=== PATIENT | female | born 1960 | race Caucasian/White ===

== ENCOUNTER 2023-07-14 08:22 | Emergency (ER) | payer OTHER, SELFPAY ==
--- NOTE | ~2023-07-14 | XR_ITS ---
EXAMINATION: XR chest 2V DATE: 07/14/2023 08:47 INDICATION: Cough and congestion TECHNIQUE: PA and lateral views of the chest are obtained. COMPARISON: 04/20/2010 FINDINGS: The lungs are free of acute opacities. No pleural effusion or pneumothorax. The cardiomedia stinal silhouette is normal. There is moderate thoracic spondylosis. Thoracic dextroscoliosis is note d. IMPRESSION: 1. No acute cardiopulmonary abnormality. Reviewed, dictated and finalized at location [employer]
--- NOTE | 2023-07-14 08:27 | ED.URI ---
HPI - URI/Sore Throat General Chief Complaint: Upper Respiratory Infection Stated Complaint: Cough,Congestion,Bilateral Ear Irritation Time Seen by Provider: 07/14/23 08:27 Source: patient, RN notes reviewed and old records reviewed Mode of arrival: ambulatory Limitations: no limitations History of Present Illness HPI Narrative: 63-year-old female presents to the [facility] with complaints of cough, sinus congestion, bilateral ear discomfort. Symptoms started 7 days ago. Related Data Home Medications Medication Instructions Recorded Confirmed doxycycline hyclate 20 mg tablet 20 mg PO BID 07/14/23 07/14/23 Allergies Allergy/AdvReac Type Severity Reaction Status Date / Time Sulfa (Sulfonamide AdvReac Mild Hives Verified 07/14/23 08:24 Antibiotics) Review of Systems Review of Systems: All systems reviewed & are unremarkable except as noted in HPI and below Constitutional: Constitutional: Reports no additional constitutional complaints Eyes: Eyes: Reports no additional eye complaints ENT: Reports as per HPI and Reports otalgia Cardiovascular: Cardiovascular: Reports no additional cardiovascular complaints, Denies chest pain and Denies dyspnea Respiratory: Respiratory: Reports as per HPI, Denies chest congestion, Reports cough, Denies dyspnea and Reports wheezing Gastrointestinal: Gastrointestinal: Reports no additional gastrointestinal complaints, Denies abdominal pain, Denies nausea and Denies vomiting Musculoskeletal: Musculoskeletal: Reports no additional musculoskeletal complaints Integumentary/Breasts: Skin/Breast: Reports system reviewed and no additional complaints, except as docu Neurologic: Reports system reviewed and no additional complaints, except as documented Psychiatric: Psychiatric: Reports no additional psychiatric complaints Allergic/Immunologic: Allergic/Immunologic: Reports no additional allergic/immunologic complaints [facility] Family History Family History Mother Asthma Patient's mother is Father Patient's father is in good health Family history of diabetes mellitus in first degree relative Sibling Patient's brother is in good health Malignant neoplasm of prostate Patient's sister is Social History Social History Alcohol intake: never Comments At the time of my signature, I reviewed and agree with the nursing past medical, surgical, social, and family history. There is no relevant family history pertinent to the patient complaint. Exam Const: General: cooperative, healthy appearing, no acute distress, well developed, alert, uncomfortable and well nourished Nutritional Appearance: well nourished Orientation/consciousness: patient oriented x3 Limitations: no limitations HENMT: Head: normal to inspection Ears: hearing grossly normal bilaterally, external ears normal, TM's normal bilaterally, EAC's normal, mastoids normal and no periauricular adenopathy Face/Nose/Sinus: Normal external nose present, Normal nares present, Normal nasal mucous membranes and turbinates present, normal facial exam and face symmetric Face and sinus: normal facial exam and face symmetric Mouth: Yes Normal oral and palatal mucosa present, Yes lip normal and Yes moist mucous membranes Throat: posterior oropharynx normal, uvula midline and postnasal drainage Eyes: General: appearance normal, both eyes and all related structures Alignment and Position: alignment normal Periorbital: periorbital findings normal Pupils: Equal, round and reactive pupils present EOM: EOMs intact bilaterally Neck: Neck: normal visual inspection, full ROM, no lymphadenopathy and no meningeal signs Chest: Chest palpation & inspection: normal inspection of the chest Resp: Effort & Inspection: normal respiratory effort and able to speak in complete sentences Auscultation: c
[2023-07-14 08:38] VITALS: BP 151/77; PULSE 67; RESP 18; TEMP 36.4; O2SAT 100
== END 2023-07-14 09:50 | disposition home or self-care (01) ==
PROVIDERS: Emergency Provider Nurse Practitioner
DX: J40 Bronchitis, not specified as acute or chronic (principal); J32.9 Chronic sinusitis, unspecified; Z86.16 Personal history of COVID-19; M19.90 Unspecified osteoarthritis, unspecified site
CPT/HCPCS: 71046; 99213; G0463

== ENCOUNTER 2023-12-28 18:11 | Emergency (ER) | payer OTHER, SELFPAY ==
--- NOTE | 2023-12-28 18:14 | ED.EYEPROB ---
HPI - Eye Problem General Chief complaint: Eye Problems Stated complaint: pink eye/stung Time Seen by Provider: 12/28/23 18:14 Source: patient Mode of arrival: ambulatory Limitations: no limitations History of Present Illness HPI Narrative: Marisa is a 63-year-old female patient presenting to the clinic today with complaints of possible insect bite/sting to the right eyelid verses pinkeye. She reports she has had watery discharge coming from the eye and the eyelid is very itchy. States she woke up this morning like this. Denies any purulent discharge coming from the eye or any visual changes but states that she has allergies and did mow the lawn 3-4 days ago. Related Data Home Medications Medication Instructions Recorded Confirmed doxycycline hyclate 20 mg tablet 20 mg PO BID 07/14/23 12/28/23 diclofenac sodium 75 mg 75 mg PO DAILY 12/28/23 12/28/23 tablet,delayed release Allergies Allergy/AdvReac Type Severity Reaction Status Date / Time Sulfa (Sulfonamide AdvReac Mild Hives Verified 12/28/23 18:22 Antibiotics) Review of Systems Review of Systems: Pertinent positives per HPI. Patient denies any fever, chills, rash, headache, visual changes, dizziness, cough, runny nose, sore throat, shortness of breath, chest pain, palpitations, nausea, vomiting, diarrhea, constipation, abdominal pain, or any urinary issues. PMFSH Family History Family History Mother Asthma Patient's mother is Father Patient's father is in good health Family history of diabetes mellitus in first degree relative Sibling Patient's brother is in good health Malignant neoplasm of prostate Patient's sister is Social History Social History Alcohol intake: never Comments At the time of my signature, I reviewed and agree with the nursing past medical, surgical, social, and family history. There is no relevant family history pertinent to the patient complaint. Exam Narrative: General: Well-developed, well nourished, in no apparent distress Head: Normocephalic, atraumatic Eyes: Pupils equally round and reactive to light bilaterally, EOM intact, sclera and conjunctive clear, no discharge, swelling localized to the right upper eyelid with likely due to insect bite Ears: TMs intact and clear, ear canals clear, no drainage, grossly hearing normal. Nose: Nares patent, no discharge, no inflammation, no sinus tenderness. Mouth: Oropharynx without lesions or masses, good dentition, MMM. Neck: Supple, trachea midline, no enlargement of anterior or posterior cervical nodes, no thyroid masses or goiter palpable. Cardio: Regular rate and rhythm, s1 and s2 normal, no murmur appreciated. Resp: Clear to auscultation bilaterally anteriorly and posteriorly, no rhonchi, rales, wheezing or rubs Course Course Emergency Course: Portions of this record may have been created with voice recognition software. Level of Care: Express Care Visit Vital Signs Vital signs: Vital signs reviewed MDM - Eye Problem MDM Narrative Medical decision making narrative: At the time of visit patient is resting comfortably on the exam table. Patient appears to be nontoxic. Plan: I suspect patient has a insect bite with it general allergic reaction to the right upper eyelid. Prescription for triamcinolone cream and azelastine eyedrops was sent to the pharmacy. Supportive measures were discussed with the patient and they voiced understanding discharge instructions and agrees to treatment plan. Return precautions reviewed Differential Diagnosis Differential diagnosis: Likely corneal abrasion, conjunctivitis, acute iritis, periorbital cellulitis and other (Insect bite) Discharge Plan Discharge Clinical Impression: Insect bite Qualifiers: Encounter type: initial encounter Site of insect bite: h
[2023-12-28 18:22] VITALS: BP 123/65; PULSE 72; RESP 18; TEMP 36.4; O2SAT 99
[2023-12-28 18:24] VITALS: BP 123/65; PULSE 72; RESP 18; TEMP 36.4; O2SAT 99
== END 2023-12-28 18:30 | disposition home or self-care (01) ==
PROVIDERS: Emergency Provider Nurse Practitioner Family; PCP Registered Nurse
DX: S00.261A Insect bite (nonvenomous) of right eyelid and periocular area, initial encounter (principal); W57.XXXA Bitten or stung by nonvenomous insect and other nonvenomous arthropods, initial encounter; T78.40XA Allergy, unspecified, initial encounter
CPT/HCPCS: 99213; G0463

== ENCOUNTER 2024-12-24 15:51 | Emergency (ER) | payer OTHER, SELFPAY ==
--- NOTE | 2024-12-24 15:53 | ED.SKABFB ---
HPI - Skin/Abscess/Foreign Bdy General Chief complaint: Skin/Abscess/Foreign Body Stated complaint: rash Time Seen by Provider: 12/24/24 15:53 Source: patient Mode of arrival: ambulatory Limitations: no limitations History of Present Illness HPI narrative: Patient is a 64-year-old female who presents with redness, swelling, itching in warmth to left upper extremity. States she has woken herself up itching and middle the night. Does report itching makes it painful. Denies any burning sensation or blisters. Has used cortisone cream and antibiotic ointment with no relief. Related Data Home Medications ?Medication ?Instructions ?Recorded ?Confirmed ?Last Taken ?Type doxycycline hyclate 20 mg tablet 20 mg PO BID 07/14/23 12/28/23 Unknown History diclofenac sodium 75 mg 75 mg PO DAILY 12/28/23 12/28/23 Unknown History tablet,delayed release Allergies Allergy/AdvReac Type Severity Reaction Status Date / Time Sulfa (Sulfonamide Allergy Mild Hives Verified 12/24/24 16:03 Antibiotics) Review of Systems Review of Systems: All systems reviewed & are unremarkable except as noted in HPI and below Constitutional: Constitutional: Denies body ache(s), Denies chills, Denies fatigue, Denies fever(s), Denies headache(s), Denies malaise and Denies weakness Eyes: Eyes: Denies blurry vision, Denies irritation and Denies loss of vision ENT: Denies otalgia, Denies headache(s), Denies nasal discharge, Denies sinus pain and Denies sore throat Cardiovascular: Cardiovascular: Denies chest pain, Denies irregular heart rhythm and Denies dyspnea Respiratory: Respiratory: Denies dyspnea Gastrointestinal: Gastrointestinal: Denies abdominal pain, Denies melena, Denies hematochezia, Denies diarrhea, Denies nausea and Denies vomiting Musculoskeletal: Musculoskeletal: Denies back pain, Denies myalgias and Denies arthralgias Integumentary/Breasts: Skin/Breast: Reports pruritus, Reports erythema, Reports rash and Reports skin swelling Neurologic: Denies headache(s), Denies loss of vision and Denies weakness Psychiatric: Psychiatric: Reports no additional psychiatric complaints Endocrine: Endocrine: Denies fatigue [facility] Family History Family History Mother Asthma Patient's mother is Father Patient's father is in good health Family history of diabetes mellitus in first degree relative Sibling Patient's brother is in good health Malignant neoplasm of prostate Patient's sister is Social History Social History Alcohol intake: never Comments At time of signature, agree with nursing past medical, surgical, social and family history. There is no relevant family history pertinent to the presenting complaint. Exam Const: General: cooperative, healthy appearing, comfortable, no acute distress and well nourished Nutritional Appearance: well nourished Orientation/consciousness: patient oriented x3 Limitations: no limitations HENMT: Head: normal to inspection, normocephalic and atraumatic Ears: hearing grossly normal bilaterally and external ears normal Face/Nose/Sinus: Normal external nose present, normal facial exam and face symmetric Face and sinus: normal facial exam and face symmetric Mouth: Yes lip normal Eyes: General: appearance normal, both eyes and all related structures Alignment and Position: alignment normal and position normal Periorbital: periorbital findings normal Eyelids: eyelids normal Pupils: Equal, round and reactive pupils present EOM: EOMs intact bilaterally Neck: Neck: normal visual inspection, full ROM and supple Chest: Chest palpation & inspection: normal inspection of the chest Resp: Effort & Inspection: normal respiratory effort and able to speak in complete sentences Auscultation: clear to auscultation bilaterally Cardio: Rate: regular rate Rhythm: regular rhythm Heart sounds: S1 normal heart sound present and S2 normal heart sound present GI: Inspection: normal to inspection Skin: General skin exam: normal color Full body images:  1. 1 x 1 cm area of erythema, induration and small vesicles. Center 0.5 x 0.5 scab 2. 1 x 1 cm area of erythema, induration and small vesicles. Center 0.5 x 0.5 scab 3. Surrounding erythema 8 x 7.5 cm, no streaking Neuro: General: patient oriented x3 and moves all extremities Cranial nerves: Yes Equal, round and reactive pupils present Speech: normal speech Gait exam (Neuro): Normal gait present Extrem: General: normal to inspection, full ROM and no edema Psych: Appearance: grossly normal and well kempt Mental Status: mental status grossly normal Speech and movement: Normal speech and movement present Affect: normal affect Attitude: cooperative Thought process: Normal thought process present Course Course Emergency Course: Patient is aware of diagnosis, understands and agrees to treatment plan. Anticipatory guidance given. Patient agrees to follow-up as directed and is aware of reasons to seek care at the emergency department. Portions of this record may have been created with voice recognition software Level of Care: Express Care Visit Vital Signs Vital signs: Reviewed MDM - Skin/Abscess/Foreign Bdy MDM Narrative Medical decision making narrative: Pt well hydrated appearing, in no respiratory distress, hemodynamically stable. Recommend supportive care. The patient is stable at time of discharge the clinical impression was discussed and the patient was given the opportunity to ask questions, which were addressed as completely as possible given the information available at present. Anticipatory guidance and return to care precautions were discussed and the importance of primary care follow-up was stressed and encouraged. The patient voiced understanding of the plan, indications to return, and the need for follow-up. Exam findings show no acute concerns or changes Patient is appropriate for outpatient treatment and follow-up. Differential Diagnosis Differential diagnosis: Likely viral exanthem, urticaria, herpes zoster, cellulitis, insect bites and contact dermatitis Medical Records Attestation: I reviewed the patient's medical records. Discharge Plan Discharge Clinical Impression: Cellulitis, Insect bites Patient Disposition: Home Condition: Stable Instructions: Cellulitis (ED) Additional Instructions: Rest and elevate affected area; apply moist heat 3-4 times daily for 10-15 minutes. Clean with soap and water only; Avoid using alcohol and peroxide. Elevate the affected area if possible Please take Antibiotics as directed. Take Benadryl 25-50 mg every 6 hours for itching Take Claritin, Zyrtec, or Amber daily for the next 7 days Avoid hot showers, Take cool showers. Use skin cream as prescribed to reduce itchiness To relieve itching, place a cool washcloth or some ice over the area that itches, rather than scratching For pain, you may take: Tylenol 650-1000mg by mouth every 4-6 hours. Do not exceed 4000mg in 24 hours. Advil (Ibuprofen) 600 mg by mouth every 6 hours. Do not exceed 2400mg in 24 hours. 8 AM: Tylenol 11 AM: Ibuprofen 2 PM: Tylenol 5 PM: Ibuprofen 8 PM: Tylenol 11 PM: Ibuprofen 2 AM: Tylenol 5 AM: Ibuprofen Follow up with primary care provider or seek ER if you have trouble breathing, become hoarse, or start wheezing, develop belly cramps, vomiting, feel dizzy, worsening redness, swelling, streaking (red lines), fever or chills . Patient Language: Afghan Prescriptions: New triamcinolone acetonide 0.1 % cream 1 applic topical TID 5 Days Qty: 80 0RF cephalexin 500 mg capsule 500 mg PO QID 7 Days Qty: 28 0RF mupirocin 2 % ointment 1 applic topical BID Qty: 15 0RF No Action doxycycline hyclate 20 mg tablet 20 mg PO BID diclofenac sodium 75 mg tablet,delayed release (DR/EC) 75 mg PO DAILY triamcinolone acetonide 0.1 % cream 1 applic topical BID 7 Days Qty: 30 0RF azelastine 0.05 % drops 1 drp RIGHT EYE BID 7 Days Qty: 6 0RF Follow-up/Referrals: Mohan,Renetta Sebastian APRN [Primary Care Provider] - 3 Days Stand Alone Forms: Work/School Release IP Time of Disposition: 16:14
[2024-12-24 16:00] VITALS: BP 140/71; PULSE 71; RESP 18; TEMP 36.2; O2SAT 98
== END 2024-12-24 16:20 | disposition home or self-care (01) ==
PROVIDERS: Emergency Provider Nurse Practitioner Family; PCP Registered Nurse
DX: L03.114 Cellulitis of left upper limb (principal); S40.862A Insect bite (nonvenomous) of left upper arm, initial encounter; W57.XXXA Bitten or stung by nonvenomous insect and other nonvenomous arthropods, initial encounter
CPT/HCPCS: 99213; G0463

== ENCOUNTER 2025-03-02 17:29 | Emergency (ER) | payer OTHER, SELFPAY ==
--- OUTSIDE RECORDS SUMMARY | 2023-08-12 06:22 | XMS_ITS | Continuity of Care Document ---
Author Organization [facility] Address [address] [place] [address] Phone Care Team Providers Care Graining Operator Name Role Phone Jonathan Paredes Jr, MD Unavailable Unavailab le Allergies, Adverse Reactions, Alerts Substance Reaction Status Criticality Sulfa (Sulfonamide Antibiotics) Active No Information Medications Medication Instructions Dosage Effective Dates (start - stop) Status Comments PREDNISONE (unknown strength) take 1 tablet by oral route every day Not Available - Active DOXYCYCLINE MONOHYDRATE (unknown strength) take 1 capsule by oral route every 12 hours Not Available - Active NUDICLO (unknown strength) Not Available - Active METRONIDAZOLE (unknown strength) take 1 capsule by oral route every 6 hours Not Available - Active Procedures Procedure Date Triamcinolone acet inj NOS Drugs unclassified injection DRAIN/INJECT JOINT/BURSA OFFICE/OUTPATIENT VISIT NEW Advance Directives Directive Yes / No Effective Date File Name No Information Encounters Encounter Description Practice Location Reason(s) For Visit Diagnoses Date Provider Providers Copied on Encounter [facility] , [address] [facility] [address] [facility] [address], [place], [place], [facility], [place] tel:[phone] [facility] No Information 4 Reggie Castillo. [address], [place], [address], [place]. tel: [phone] OFFICE/OUTPAT IENT VISIT NEW [facility] , [address], [place], [address], [place] tel:[phone] [facility] Pes anserinus bursitis of left knee 4 Reggie Castillo. [address], [place], [address], [place]. tel: [phone] Referring Provider: Ajit Padron, [address], [place], [address] . tel:[phone] Family History Family Member Type Diagnosis Age At Onset Mother Problem Congenital heart disease Father Problem Congenital heart disease Father Problem Diabetes mellitus Mother Problem Asthma Payers Payer name Insurance type Covered constitution party ID Authoriza tifrancis(s) [facility] Choice/Choice Plus E2 OT [id number] Social History Type Description Quantity Date Captured Comments Alcohol Use Details Unknown Caffeine Use Details Unknown Tobacco Use Status No Information Smoking Status No Information Sex Female Chief Complaint And Reason For Visit No Information Reason For Referral Reason For Referral No Information History Of Present Illness Encounter Date Complaint History Of Prese nt Illness No Information Functional Status Date Functional Assessmen t No Information Instructions Date Instruction Additional Infor mation No Information Assessments Type Assessment Date No Information Patient Care Teams Name Effective Dates (start - stop) Status Members No Information
--- OUTSIDE RECORDS SUMMARY | 2025-03-02 17:31 | XMS_ITS | Clinical Summary ---
Author Organization [facility] Address [address] [place] [address] Care Team Providers Care Nps Name Role Phone Unavailable Primary Care Provider Unavailabl e Immunizations Immunization Administration Dates Next Due Covid-19, Mrna, Lnp-s, Pf, 30 Mcg/0.3 Ml Dose (P fizer) 07/05/2021 Social History Tobacco Use Types Packs/Day Years Used Date Smoking Tobacco: Never Assessed Comments Unknown Sex and Gender Information Value Date Recorded Sex Assigned at Not on file Legal Sex Female 2:08 PM TRIAL MGR Gender Identity Not on file Sexual Orientation Not on file Plan of Treatment Health Maintenance Due Date Last Done Comments Hepatitis C Virus (HCV) Screening 1961 Pap Smear 1982 Cervical Cancer Screening (CCS) 1991 HPV/Cotest 1991 Cologuard 2006 Colonoscopy 2006 Colorectal Cancer Screening 2006 Immunochemical Fecal Occult Blood 2006 Pneumococcal Immunization (50+ years) (1 of 1 - PCV) 2011 Zoster Immunization (1 of 2) 2011 SARS-COV-2 Immunization (4 - 2023- season) 2024 07/05/2021, 08/23/2020, 07/28/2020 Influenza Immunization (#1) 2025 12/2 08/2020, 04/18/2020, 04/24/2018, Additional history exists Respiratory Syncytial Virus (RSV) Immunization (Adult) (1 - 1-dose 75+ series) 01/05/2036 DTaP/Tdap/Td Immunization Discontinued 01/20/2020 TdaP Immunization Completed 01/20/2020 Hepatitis B Immunization Aged Out No longer eligible based on patient's age to complete this topic Human Papillomavirus (HPV) Immunization Aged Out No longer eligible based on patient's age to complete this topic Meningococcal Immunization (ACWY) Aged Out No longer eligible based on patient's age to complete this topic Rotavirus Immunization Aged Out No lo nger eligible based on patient's age to complete this topic
--- OUTSIDE RECORDS SUMMARY | 2025-03-02 17:31 | XMS_ITS | Clinical Summary ---
Author Organization [facility] Address [address] [place] [address] Care Team Providers Care Hematology Specialist Name Role Phone MohanRenetta Jaquelin BETTENCOURT Primary Care Provider [phone]- [phone] Allergies Active Allergy Reactions Criticality Noted Date Comments Sulfa Antibiotics Rash Low 01/01/2019 Medications multi vitamin/minera ls tablet Take 1 tablet by mouth daily. Active Misc Natural Products (CORTISOL EDUCATION PROGRAM MANAGER) Tab Take 1 tablet by mouth daily. Active Doxycycline Hyclate 20 MG Tab Take 20 mg by mouth 2 (two) times daily. 04/03/20 23 Active azelastine (OPTIVAR) 0.05 % ophthalmic solution 12/28/19 24 Active amoxicillin (AMOXIL) 500 MG capsule TAKE 1 CAPSULE 4 TIMES A DAY UNTIL FINISHED 09/29/19 25 Active SOOLANTRA 1 % Cream APPLY TO FACE ONCE DAILY AT NIGHT 01/14/20 24 Active Brimonidine Tartrate 0.33 % Gel APPLY THIN LAYER TO FACE EVERY MORNING NEEDED. MOISTURIZE AND APPLY SUNSCREEN AFTERWARDS 12/26/19 25 Active mupirocin (BACTROBAN) 2 % ointment Apply topically 2 (two) times daily. 12/25/19 25 Active triamcinolone (KENALOG) 0.1 % cream APPLY TOPICALLY THREE TIMES A DAY FOR 5 DAYS 12/25/19 25 Active predniSONE (DELTASONE) 10 mg tablet Take 1 tablet (10 mg total) by mouth daily. Active diclofenac EC (VOLTAREN) 75 MG tabletIndicati ons:Chronic pain of left knee TAKE 1 TABLET (75 MG TOTAL) BY MOUTH DAILY NEEDED FOR MODERATE TO SEVERE PAIN ONLY 30 tablet 2 02/23/20 25 Active diclofenac EC (VOLTAREN) 75 MG tabletIndicati ons:Chronic pain of left knee TAKE 1 TABLET (75 MG TOTAL) BY MOUTH DAILY NEEDED FOR MODERATE TO SEVERE PAIN ONLY 30 tablet 2 11/24/19 25 025 Discontinued Active Problems Problem Noted Date Diagnosed Date Prediabetes 11/29/2022 BMI 40.0-44.9, adult 11/29/2022 Class 3 severe obesity due t o excess calories with serious comorbidity and body mass index (BMI) of 40.0 to 44.9 in adult 11/29/2022 Primary insomnia 05/11/2020 Seasonal allergies 01/12/2019 Resolved Problems Problem Noted Date Diagnosed Date Resolved Date Encounter for health [facility] ance examination in adult 01/12/2019 03/11/2020 Encounters Date Type Department Care Team Description 01/13/2025 8:00 AM CDT Office Visit [facility] Orthopedic & Sports Medicine [facility] [address] [place] [address] Chinyere Graves PA New Patient (Left knee pain) 01/13/2025 Travel 12/25/2024 Results Follow-Up [facility] Family & Internal Medicine [facility] [address] [place] [address] Mely Kaufman MD MG SCREENING W BARBI MELE DIGI 12/24/2024 Scan MG HEALTH INFO SRVCS Scanned, Doc Med Group 12/22/2024 3:00 PM CDT - 12/22/2024 11:59 PM CDT Hospital Encounter [facility] [address] [place] [address] Mely Kaufman MD Discharge Disposition: Home or Self Care (Routine Discharge) 12/22/2024 Travel from Last 3 Months Immunizations Immunization Administration Dates Next Due Fluzone 6 Months+ Quad (0.5 mL Prefilled Syringe) 06/22/2021,04/18/2020 Influenza Adult (Generic) 03/07/2023,04/24/2018 PFIZER COVID-19 (ORIGINAL FORMULATION, PURPLE CAP) mRNA, LNP-S, PF, 30 MCG/0.3 ML DOSE 07/05/2021,05/02/2021,08/23/2020,2020 PFIZER COVID-19 BIVALENT (12 +) mRNA, LNP-S, PF, 30 MCG/0.3 ML DOSE 10/23/2022 Shingrix 11/09/2024 Tdap (Historical Only-select from magnify glass) 01/20/2020 Family History Medical History Relation Comments failure to thrive Father Diabetes Mother Breast Cancer Neg Hx Relation Status Comments Father Mother Social History Tobacco Use Types Packs/Day Years Used Date Smoking Tobacco: Never Smokeless Tobacco: Never Tobacco Cessation:Counseling Given: No Alcohol Use Standard Drinks/Week Comments No 0 (1 standard drink = 0.6 oz pur e alcohol) AUDIT-C Answer Date Recorded Frequency of Alcohol Consumption Never 01/01/2019 Average Number of Drinks Not on file 019 Frequency of Binge Drinking Not on file 09/2018 PHQ-2 Answer Date Recorded Patient Health Questionnaire-2 Score 0 10/27/2024 Comments No Sex and Gender Information Value Date Recorded Sex Assigned at Female 10/27/2024 2:58 PM CDT Legal Sex Female 7:59 PM CDT Gender Identity Female 10/27/2024 2:58 PM CDT Sexual Orientation Not on file Last Filed Vital Signs Vital Sign Reading Time Taken Comments Blood Pressure 137/79 01/13/2025 8:54 AM CDT Pulse 65 01/13/2025 7:57 AM CDT Temperature 36.8 C (98.3 F) 01/13/2025 7:57 AM CDT Respiratory Rate 18 11/09/2024 3:23 PM CDT Oxygen Saturation 99% 11/09/2024 3:23 PM CDT Inhaled Oxygen Concentration - - Weight 100.6 kg (221 lb 12.8 oz) 01/13/2025 7:57 AM CDT Height 157.5 cm (5' 2) 01/13/2025 7:57 AM CDT Body Mass Index 40.57 01/13/2025 7:57 AM CDT Plan of Treatment Upcoming Encounters Date Type Department Care Team (Late st Contact Info) Description 04/12/2025 3:20 PM CDT Office Visit [facility] Orthopedic & Sports Medicine - [address] [place] [address] Chinyere Graves PA [address] [place] [address] Health Maintenance Due Date Last Done Comments Cervical Cancer Screening Pap Smear (Age 30 to 64) Every 3 Years 1961 Hepatitis C 1979 Cervical Cancer Screening Pap with HPV Testing (Age 30 to 64) Every 5 Years 1991 Cervical Cancer Screening with HPV 1991 Pneumococcal Vaccine: 50+ Years (1 of 1 - PCV) 2011 RSV Immunization or 60+ Years (1 - Risk 60-74 years 1-dose series) 2021 COVID-19 Vaccine ( season) 2024 10/23/2022, 07/05/2021, 05/02/2021, Additional history exists Zoster Vaccines (2 of 2) 2025 11/09/2024 Annual Physical 11/09/2025 11/09/2024, 06/22/2021 Mammogram Screening 12/22/2026 12/22/2024, 12/05/2022, 10/28/2020, Additional history exists Colorectal Cancer Screening Colonoscopy (10 Years) 06/05/2029 06/05/2019 DTaP, Tdap and Td Vaccines (2 - Td or Tdap) 01/19/2030 01/20/2020 PHQ-2 (Physician [place]) Completed 10/27/2024 Meningococcal B Vaccine Aged Out No l onger eligible based on patient's age to complete this topic Meningococcal Vaccine Aged Out No omkar reilly eligible based on patient's age to complete this topic RSV Immunizations Under 20 Months Aged Out No longer eligible based on patient's age to complete this topic Procedures Procedure Name Priority Date/Time Associated Diagnosis Comments XR KNEE LT 3V Routine 01/13/2025 9:00 AM CDT Left knee pain, unspecified chronicity OUS GUIDE NEEDLE PLCMT ORTHO Routine 01/13/2025 8:34 AM CDT Left knee pain, unspecified chronicity MG SCREENING W BARBI MELE DIGI Routine 12/22/2024 3:33 PM CDT Breast cancer screening by mammogram from Last 3 Months Results * XR KNEE LT 3V (01/13/2025 9:00 AM CDT) Anatomical Region Laterality Modality Knee Radiographic Michaela ging 01/13/2025 9:12 AM CDT Impressions 01/13/2025 9:12 AM CDT IMPRESSION: Alden appearance of the left knee Ordered By: CHINYERE GRAVES Interpreted By: Tommy Covarrubias MD, 01/13/2025 9:12 AM Narrative 01/13/2025 9:12 AM CDT 3 VIEWS OF THE LEFT KNEE Clinical History: Pain Comparison: October 27, 2024 3 views of the left knee demonstrate the bony elements to be intact. There is no evidence of fracture or dislocation. The surrounding soft tissues appear normal. Loss of joint space and medial compartment is again demonstrated and appears unchanged. Bulky medial joint marginal osteophytes are also noted. Degenerative changes within the patellofemoral joint remains stable Procedure Note Tommy Covarrubias MD - 01/13/2025 3 VIEWS OF THE LEFT KNEE Clinical History: Pain Comparison: October 27, 2024 3 views of the left knee demonstrate the bony elements to be intact. Thereis no evidence of fracture or dislocation. The surrounding soft tissuesappear normal. Loss of joint space and medial compartment is againdemonstrated and appears unchanged. Bulky medial joint marginalosteophytes are also noted. Degenerative changes within the patellofemoraljoint remains stable IMPRESSION: Alden appearance of the left knee Ordered By: CHINYERE GRAVES Interpreted By: Tommy Covarrubias MD, 01/13/2025 9:12 AM Chinyere [facility] Final Result * OUS GUIDE NEEDLE PLCMT ORTHO (01/13/2025 8:34 AM CDT) Anatomical Region Laterality Modality Ultrasound 01/13/2025 7:37 AM CDT Narrative 01/13/2025 7:37 AM CDT This report does not contain a radiologist's interpretation. Please review associated procedure and/or operative report. Procedure Note Flaquito Lemus MD - 01/13/2025 This report does not contain a radiologist's interpretation. Please review associated procedure and/or operative report. us Chinyere ASH[facility] ULTR[facility] Final Result * MG SCREENING W BARBI MELE DIGI (12/22/2024 3:33 PM CDT) Anatomical Region Laterality Modality Breast Bilateral Mammography 12/25/2024 9:56 AM CDT Impressions 12/25/2024 9:56 AM CDT =====IMPRESSION:===== No mammographic findings suggestive of malignancy ASSESSMENT: ACR BI-RADS 2 - BENIGN FINDING(S) Recommendation: 1: Routine Screening Bilateral COMMENTS: Ordered By: MELY KAUFMAN Interpreted By: Thiago Pride MD, 12/25/2024 9:56 AM Narrative 12/25/2024 9:56 AM CDT [facility] [address] [place] [address] EXAMINATION: Digital bilateral screening mammogram with 3-D tomosynthesis EXAM DATE/TIME: 12/22/2024 3:07 PM REASON FOR EXAM: screening COMPARISON: Priors including November 2022, September 2020, August 2018. TECHNIQUE: Digital screening mammography of both breasts was performed in addition to 3-D Tomosynthesis technique. This study was read with the assistance of a computer-aided detection system. TISSUE DENSITY: There are scattered areas of fibroglandular density. FINDINGS: No suspicious masses, malignant appearing calcifications, skin thickening or other abnormalities are present. No significant change from the prior exam. Mely Kaufman MD MAMMO Final Resul t from Last 3 Months Insurance [facility] Care Teams Hematology Specialist Relationship Specialty Start Date End Date Renetta Preston APRN [id number] [place] [id number] PCP - General NURSE PRACTITIONER 11/07/22
[2025-03-02 17:38] VITALS: BP 128/77; PULSE 75; RESP 18; TEMP 36.3; O2SAT 100
--- NOTE | 2025-03-02 17:58 | ED.SKABFB ---
HPI - Skin/Abscess/Foreign Bdy General Chief complaint: Skin/Abscess/Foreign Body Stated complaint: rash Time Seen by Provider: 03/02/25 17:40 Source: patient and RN notes reviewed Mode of arrival: ambulatory Limitations: no limitations History of Present Illness HPI narrative: 65-year-old female presents Express Care complaining of rash under her breast and and pelvic region. Patient said approximately 4 days ago she applied Douglas skin so soft to her bra and underwear use as a natural insect repellant and after wearing her garments she developed a rash under her breasts and onto her pelvic area. Patient reports that it olea in its pruritic. Patient has tried [id number] creams without relief. Patient denies any other symptoms. Related Data Home Medications ?Medication ?Instructions ?Recorded ?Confirmed ?Last Taken ?Type doxycycline hyclate 20 mg tablet 20 mg PO BID 07/14/23 03/02/25 Unknown History diclofenac sodium 75 mg 75 mg PO DAILY 12/28/23 03/02/25 Unknown History tablet,delayed release Allergies Allergy/AdvReac Type Severity Reaction Status Date / Time Sulfa (Sulfonamide Allergy Mild Hives Verified 03/02/25 17:35 Antibiotics) Review of Systems Review of Systems: CONSTITUTIONAL: Denies fever, chills, or sweats. EYES: Denies visual changes, redness, or discharge. ENT: Denies rhinorrhea, congestion, sore throat, or otalgia. CARDIOVASCULAR: Denies chest pain, palpitations, or edema. RESPIRATORY: Denies cough or dyspnea. GASTROINTESTINAL: Denies abdominal pain, nausea, vomiting, or diarrhea. GENITOURINARY: Denies dysuria or hematuria. SKIN: Positive for rash and itching. MUSCULOSKELETAL: Denies back pain, joint pain, or myalgia. NEUROLOGIC: Denies headache, numbness, or weakness. PSYCHIATRIC: Denies anxiety or depression. All other systems reviewed are negative, except as documented in HPI. [facility] Family History Family History Mother Asthma Patient's mother is Father Patient's father is in good health Family history of diabetes mellitus in first degree relative Sibling Patient's brother is in good health Malignant neoplasm of prostate Patient's sister is Social History Social History Alcohol intake: never Comments At the time of my signature, I reviewed and agree with the nursing past medical, surgical, social, and family history. There is no relevant family history pertinent to the patient complaint. Exam Narrative: GENERAL: This is a well-nourished, well-developed adult, in no apparent distress. They are non ill-appearing, nontoxic appearing. HEAD: normocephalic, atraumatic. EYES: Sclera clear/white. Conjunctiva normal. Vision is grossly intact. Extraocular movements intact EARS: External ears normal, Hearing grossly intact. NOSE: External nose normal THROAT: Mucous membranes moist, NECK: Neck supple, CARDIOVASCULAR: Regular rate and rhythm RESPIRATORY: Respiratory rate normal, respiratory effort nonlabored, no respiratory distress SKIN: Erythematous macular papular pruritic rash diffusely present of the patient's breast and lower end of her chest, and and scantly on her upper pannus. Skin is indurated to the breast bone. No area of fluctuance common no exudate. Is warm to touch with mild tenderness. NEURO: awake, alert, and oriented to person, place and time. There were no obvious focal neurologic abnormalities. EXTREMITIES: No joint tenderness, effusion, or edema noted. Course Course Emergency Course: Portions of this record may have been created with voice recognition software Level of Care: Express Care Visit Vital Signs Vital signs: Vital Signs Temperature 97.3 F L 03/02/25 17:38 Pulse Rate 75 03/02/25 17:38 Respiratory Rate 18 03/02/25 17:38 Blood Pressure 128/77 03/02/25 17:38 Pulse Oximetry 100 03/02/25 17:38 Oxygen Delivery Room Air 03/02/25 17:38 Temperature 97.3 F L 03/02/25 17:38 Pulse Rate 75 03/02/25 17:38 Respiratory Rate 18 03/02/25 17:38 Blood Pressure 128/77 03/02/25 17:38 Pulse Oximetry 100 03/02/25 17:38 Oxygen Delivery Room Air 03/02/25 17:38 Reviewed MDM - Skin/Abscess/Foreign Bdy MDM Narrative Medical decision making narrative: Patient likely has a allergic contact dermatitis related to the skin product that she used. Given the extent of discomfort the patient is having will treat her with prednisone. Discussed physical exam findings. Advised supportive measures and signs/symptoms to go to the ER. Pt is appropriate for outpt treatment and f/u. Differential Diagnosis Differential diagnosis: Likely abscess of skin or subcutaneous tissue, dermatophytosis, urticaria, cellulitis, eczema and contact dermatitis Critical Care Time Critical Care Time Critical Care Time: No Discharge Plan Discharge Clinical Impression: Contact dermatitis Patient Disposition: Home Condition: Stable Instructions: Contact Dermatitis (ED) Additional Instructions: Take the prednisone as directed. You may use calamine lotion, camphor, hydrocortisone cream , Benadryl cream as needed for itchiness symptoms. You may also take Zyrtec or Claritin as needed for allergy or itchiness symptoms. Follow-up PCP in 3-5 days. If you develop any worsening redness, swelling, discharge, fevers, breathing problems, or any other concerns please go to the ER immediately. Patient Language: Indonesian Prescriptions: New prednisone 20 mg tablet 40 mg PO DAILY 5 Days Qty: 10 0RF No Action triamcinolone acetonide 0.1 % cream 1 applic topical TID 5 Days Qty: 80 0RF mupirocin 2 % ointment 1 applic topical BID Qty: 15 0RF doxycycline hyclate 20 mg tablet 20 mg PO BID diclofenac sodium 75 mg tablet,delayed release (DR/EC) 75 mg PO DAILY triamcinolone acetonide 0.1 % cream 1 applic topical BID 7 Days Qty: 30 0RF azelastine 0.05 % drops 1 drp RIGHT EYE BID 7 Days Qty: 6 0RF Follow-up/Referrals: Myranda,Ajit Barnett MD [Primary Care Provider] Time of Disposition: 17:53
== END 2025-03-02 17:55 | disposition home or self-care (01) ==
PROVIDERS: PCP Family Medicine
DX: L25.9 Unspecified contact dermatitis, unspecified cause (principal)
CPT/HCPCS: 99213; G0463

== ENCOUNTER 2025-06-21 17:09 | Emergency (ER) | payer OTHER, SELFPAY ==
[2025-06-21 17:22] VITALS: BP 129/73; PULSE 99; RESP 18; TEMP 37.3; O2SAT 99
--- NOTE | 2025-06-21 17:27 | ED.URI ---
HPI - URI/Sore Throat General Chief Complaint: Upper Respiratory Infection Stated Complaint: chest cold Source: patient Mode of arrival: ambulatory Limitations: no limitations History of Present Illness HPI Narrative: this is a 65 y/o patient that presents with cough, body aches, sore throat, fever since . patient states she had a fever up to 103 saturday. patient reported that time she felt so bad she can get out of bed. patient reports she flew home from [place] today, and feels worse. patient has been taking mucinex for cough and congestion. She has been taking Mucinex which has helped. She denies any chest pain, shortness a breath she denies vomiting diarrhea. Denies any headache. MD elicited complaint: fever, cough, sore throat, rhinorrhea and nasal congestion Onset (ago): day(s) (4) Consistency: constant Severity: mild Description of mucous: green Able to tolerate fluids by mouth: Yes Exacerbating factors: nothing Relieving factors: OTC cold medicine Associated symptoms: denies other symptoms Treatments prior to arrival: acetaminophen and cold medicine Related Data Home Medications ?Medication ?Instructions ?Recorded ?Confirmed ?Last Taken ?Type doxycycline hyclate 20 mg tablet 20 mg PO BID 07/14/23 03/02/25 Unknown History diclofenac sodium 75 mg 75 mg PO DAILY 12/28/23 03/02/25 Unknown History tablet,delayed release Allergies Allergy/AdvReac Type Severity Reaction Status Date / Time Sulfa (Sulfonamide Allergy Mild Hives Verified 06/21/25 17:11 Antibiotics) Review of Systems Review of Systems: All systems reviewed & are unremarkable except as noted in HPI and below PMFSH Family History Family History Mother Asthma Patient's mother is Father Patient's father is in good health Family history of diabetes mellitus in first degree relative Sibling Patient's brother is in good health Malignant neoplasm of prostate Patient's sister is Social History Social History Alcohol intake: never Exam Const: General: ill appearing Nutritional Appearance: well nourished Orientation/consciousness: patient oriented x3 Limitations: no limitations HENMT: Head: normal to inspection Ears: TM abnormal bulging bilateral and with fluid behind the TM bilateral Face/Nose/Sinus: Nasal discharge present mucoid Face and sinus: sinus tenderness frontal and maxillary Mouth: Yes Normal oral and palatal mucosa present, Yes lip normal and Yes moist mucous membranes Teeth and gingiva: dentition normal Throat: posterior oropharynx normal Eyes: Conjunctivae: conjunctivae normal Pupils: Equal, round and reactive pupils present EOM: EOMs intact bilaterally Direct Ophthalmoscopy: no photophobia Neck: Neck: normal visual inspection and no lymphadenopathy Chest: Chest palpation & inspection: normal inspection of the chest Resp: Effort & Inspection: normal respiratory effort Auscultation: rhonchi upper bilaterally and diminished lung sounds bilateral in the lower lung betancur Cardio: Rate: regular rate Rhythm: regular rhythm GI: GI Palp: Yes Soft to palpation Auscultation: normal bowel sounds Back/Spine/Pelvis: Back: no CVA tenderness Skin: General skin exam: normal color Rashes: no rashes Wounds: no wounds Neuro: General: patient oriented x3 Cranial nerves: Yes Nystagmus not present Speech: normal speech Gait exam (Neuro): Normal gait present Extrem: General: normal to inspection and no clubbing, cyanosis or edema Psych: Mental Status: mental status grossly normal Affect: normal affect Attitude: cooperative Course Course Emergency Course: this is a 65 y/o patient that presents with cough, body aches, sore throat, fever since . patient states she had a fever up to 103 saturday. patient reported that time she felt so bad she can get out of bed. patient reports she flew home from [place] today, and feels worse. patient has been taking mucinex for cough and congestion. She has been taking Mucinex which has helped. She denies any chest pain, shortness a breath she denies vomiting diarrhea. Denies any headache. Vital signs are stable patient remains to be afebrile influenza a and B, COVID testing ordered influenza a and B negative COVID negative educated patient on test results, exam findings and need for treatment and outpatient symptomatic management. She verbalized understanding she is agreeable to this plan. educated this patient to increase fluids, rest, Continue with symptomatic management, - cough and cold medications as package - mucinex per package instructions - cough drops for sore throat and cough - vicks vapor rub - tylenol and motrin as needed for fever and pain continue with antibiotic as prescribed, Continue with prednisone as instructed, follow-up with primary care provider in 2-3 days for further evaluation and exam. return to the emergency department or urgent care any worrisome sign or symptom internal questions to her satisfaction she is grew will plan. Patient denies any further needs or concerns to be addressed prior to her discharge Level of Care: Express Care Visit Vital Signs Vital signs: Vital Signs Temperature 99.1 F 06/21/25 17:22 Pulse Rate 99 06/21/25 17:22 Respiratory Rate 18 06/21/25 17:22 Blood Pressure 129/73 06/21/25 17:22 Pulse Oximetry 99 06/21/25 17:22 Oxygen Delivery Room Air 06/21/25 17:22 Temperature 99.1 F 06/21/25 17:22 Pulse Rate 99 06/21/25 17:22 Respiratory Rate 18 06/21/25 17:22 Blood Pressure 129/73 06/21/25 17:22 Pulse Oximetry 99 06/21/25 17:22 Oxygen Delivery Room Air 06/21/25 17:22 MDM MDM Narrative Medical decision making narrative: this is a 65 y/o patient that presents with cough, body aches, sore throat, fever since . patient states she had a fever up to 103 saturday. patient reported that time she felt so bad she can get out of bed. patient reports she flew home from [place] today, and feels worse. patient has been taking mucinex for cough and congestion. She has been taking Mucinex which has helped. She denies any chest pain, shortness a breath she denies vomiting diarrhea. Denies any headache. Vital signs are stable patient remains to be afebrile influenza a and B, COVID testing ordered influenza a and B negative COVID negative educated patient on test results, exam findings and need for treatment and outpatient symptomatic management. She verbalized understanding she is agreeable to this plan. educated this patient to increase fluids, rest, Continue with symptomatic management, - cough and cold medications as package - mucinex per package instructions - cough drops for sore throat and cough - vicks vapor rub - tylenol and motrin as needed for fever and pain continue with antibiotic as prescribed, Continue with prednisone as instructed, follow-up with primary care provider in 2-3 days for further evaluation and exam. return to the emergency department or urgent care any worrisome sign or symptom internal questions to her satisfaction she is grew will plan. Patient denies any further needs or concerns to be addressed prior to her discharge Differential Diagnosis Differential Diagnosis: COVID, viral syndrome, influenza, URI Medical Records I have reviewed the following patient records and this information was taken into consideration when formulating the assessment and plan.: previous labs and previous clinic visits Lab Data [facility] Lab Attestation statement: I personally reviewed the patient's lab results. Lab results narrative: COVID-19 negative influenza a and B negative Labs: Lab Results 06/21/25 Range/Units 17:40 POC Influenza A Ag Negative (Negative) POC Influenza B Ag Negative (Negative) POC SARS CoV-2 Ag Negative (Negative) Discharge Plan Discharge Clinical Impression: Upper respiratory infection Qualifiers: URI type: unspecified URI Qualified Code(s): J06.9 - Acute upper respiratory infection, unspecified Patient Disposition: Home Condition: Stable Instructions: Antibiotic Form, Upper Respiratory Infection (ED) Additional Instructions: increase fluids rest Continue with symptomatic management - cough and cold medications as package instructs - mucinex per package instructions - cough drops for sore throat and cough - vicks vapor rub - tylenol and motrin as needed for fever and pain continue with antibiotic as prescribed Continue with prednisone as instructed follow-up with primary care provider in 2-3 days for further evaluation and exam return to the emergency department or urgent care any worrisome sign or symptom Patient Language: Arabic Prescriptions: New amoxicillin-pot clavulanate 875-125 mg tablet 1 tablet PO Q12H Qty: 14 0RF prednisone 20 mg tablet 20 mg PO BID Qty: 10 0RF No Action triamcinolone acetonide 0.1 % cream 1 applic topical TID 5 Days Qty: 80 0RF mupirocin 2 % ointment 1 applic topical BID Qty: 15 0RF doxycycline hyclate 20 mg tablet 20 mg PO BID diclofenac sodium 75 mg tablet,delayed release (DR/EC) 75 mg PO DAILY triamcinolone acetonide 0.1 % cream 1 applic topical BID 7 Days Qty: 30 0RF azelastine 0.05 % drops 1 drp RIGHT EYE BID 7 Days Qty: 6 0RF prednisone 20 mg tablet 40 mg PO DAILY 5 Days Qty: 10 0RF Follow-up/Referrals: Myranda,Aijt Barnett MD [Primary Care Provider] Time of Disposition: 17:41
--- OUTSIDE RECORDS SUMMARY | 2025-06-21 17:27 | XMS_ITS | Clinical Summary ---
Author Organization [facility] Address [address] [place] [address] Care Team Providers Care Electric Repair Supervisor Name Role Phone MohanRenetta Jaquelin BETTENCOURT Primary Care Provider [phone]- [phone] Allergies Active Allergy Reactions Criticality Noted Date Comments Sulfa Antibiotics Rash Low 01/01/2019 Medications multi vitamin/mineral s tablet Take 1 tablet by mouth daily. Active Misc Natural Products (CORTISOL ANNEALING OVEN OPERATOR) Tab Take 1 tablet by mouth daily. Active Doxycycline Hyclate 20 MG Tab Take 20 mg by mouth 2 (two) times daily. 3 Active azelastine (OPTIVAR) 0.05 % ophthalmic solution 4 Active amoxicillin (AMOXIL) 500 MG capsule TAKE 1 CAPSULE 4 TIMES A DAY UNTIL FINISHED 5 Active SOOLANTRA 1 % Cream APPLY TO FACE ONCE DAILY AT NIGHT 4 Active Brimonidine Tartrate 0.33 % Gel APPLY THIN LAYER TO FACE EVERY MORNING NEEDED. MOISTURIZE AND APPLY SUNSCREEN AFTERWARDS 5 Active mupirocin (BACTROBAN) 2 % ointment Apply topically 2 (two) times daily. 5 Active triamcinolone (KENALOG) 0.1 % cream APPLY TOPICALLY THREE TIMES A DAY FOR 5 DAYS 5 Active predniSONE (DELTASONE) 10 mg tablet Take 1 tablet (10 mg total) by mouth daily. Active diclofenac EC (VOLTAREN) 75 MG tabletIndicatio ns:Chronic pain of left knee TAKE 1 TABLET (75 MG TOTAL) BY MOUTH DAILY NEEDED FOR MODERATE TO SEVERE PAIN ONLY 30 tablet 2 5 Active Active Problems Problem Noted Date Diagnosed Date Prediabetes 11/29/2022 BMI 40.0-44.9, adult 11/29/2022 Class 3 severe obesity due t o excess calories with serious comorbidity and body mass index (BMI) of 40.0 to 44.9 in adult 11/29/2022 Primary insomnia 05/11/2020 Seasonal allergies 01/12/2019 Resolved Problems Problem Noted Date Diagnosed Date Resolved Date Encounter for health mainten ance examination in adult 01/12/2019 03/11/2020 Encounters Date Type Department Care Team Description 04/22/2025 1:40 PM CDT Office Visit [facility] Orthopedic & Sports Medicine - [place] [address] [place] [address] Darrell Escobedo PA Follow Up (Left knee pain) 04/22/2025 Travel from Last 3 Months Immunizations Immunization [...] Sign Reading Time Taken Comments Blood Pressure 160/78 04/22/2025 2:42 PM CDT Pulse 79 04/22/2025 2:42 PM CDT Temperature 37.1 C (98.7 F) 04/22/2025 1:38 PM CDT Respiratory Rate 18 11/09/2024 3:23 PM CDT Oxygen Saturation 99% 11/09/2024 3:23 PM CDT Inhaled Oxygen Concentration - - Weight 100.2 kg (221 lb) 04/22/2025 1:38 PM CDT Height 157.5 cm (5' 2) 01/13/2025 7:57 AM CDT Body Mass Index 40.42 01/13/2025 7:57 AM CDT Plan of Treatment Upcoming Encounters Date Type Department Care Team (Late st Contact Info) Description 07/21/2025 3:20 PM METAL DRESSER Office Visit [facility] Orthopedic & Sports Medicine - [place] [address] [place] [address] Alec Mercado MD [address] [place] [address] Health Maintenance Due Date Last Done Comments [...] - Risk 60-74 years 1-dose series) 2021 Zoster Vaccines (2 of 2) 2025 11/09/2024 COVID-19 Vaccine ( season) 2025 10/23/2022, 07/05/2021, 05/02/2021, Additional history exists Influenza Adult (#1) 2025 03/07/2023, 06/22/2021, 04/18/2020, Additional history exists Annual Physical 11/09/2025 11/09/2024, 06/22/2021 Mammogram Screening 12/22/2026 12/22/2024, 12/05/2022, 10/28/2020, Additional history exists Colorectal Cancer Screening Colonoscopy (10 Years) 06/05/2029 06/05/2019 DTaP, Tdap and Td Vaccines (2 - Td or Tdap) 01/19/2030 01/20/2020 PHQ-2 (Physician [place]) Completed 10/27/2024 Hepatitis A Vaccines Aged Out No long er eligible based on patient's age to complete this topic Meningococcal B Vaccine Aged Out No l onger eligible based on patient's age to complete this topic Meningococcal Vaccine Aged Out No omkar reilly eligible based on patient's age to complete this topic RSV Immunizations Under 20 Months Aged Out No longer eligible based on patient's age to complete this topic Procedures Procedure Name Priority Date/Time Associated Diagnosis Comments OUS GUIDE NEEDLE PLCMT ORTHO Routine 04/22/2025 2:27 PM CDT Arthritis of left knee MG SCREENING W BARBI MELE DIGI Routine 12/22/2024 3:33 PM CDT Breast cancer screening by mammogram from Last 3 Months or Most Recently Relevant to Health Maintenance Results * OUS GUIDE NEEDLE PLCMT ORTHO (04/22/2025 2:27 PM CDT) Anatomical Region Laterality Modality Ultrasound 04/22/2025 1:21 PM CDT Narrative 04/22/2025 1:21 PM CDT This report does not contain a radiologist's interpretation. Please review associated procedure and/or operative report. Procedure Note Flaquito Lemus, - 04/22/2025 This report does not contain a radiologist's interpretation. Please review associated procedure and/or operative report. Darrell ASHBY ULTRASOUND Final Result * MG SCREENING W BARBI MELE DIGI (12/22/2024 3:33 PM CDT) Anatomical Region Laterality Modality Breast Bilateral Mammography 12/25/2024 9:56 AM CDT Impressions 12/25/2024 9:56 AM CDT =====IMPRESSION:===== No mammographic findings suggestive of malignancy ASSESSMENT: ACR BI-RADS 2 - BENIGN FINDING(S) Recommendation: 1: Routine Screening Bilateral COMMENTS: Ordered By: PATRICA KAUFMAN Interpreted By: Thiago Pride MD, 12/25/2024 9:56 AM Narrative 12/25/2024 9:56 AM CDT [facility] [address] [place], [place] [id number] EXAMINATION: Digital bilateral screening mammogram with 3-D [...] No significant change from the prior exam. Patrica Kaufman MD MAMMO Final Resul t from Last 3 Months or Most Recently Relevant to Health Maintenance Insurance [facility] Care Teams Electric Repair Supervisor Relationship Specialty Start Date End Date Renetta Preston APRN [id number] [id number] PCP - General NURSE PRACTITIONER 11/07/22
--- OUTSIDE RECORDS SUMMARY | 2025-06-21 17:27 | XMS_ITS | Clinical Summary ---
Author Organization [facility] Address [address] [place] [address] Care Team Providers Care Campus President Name Role Phone Unavailable Primary Care Provider Unavailabl e Immunizations Immunization Administration Dates Next Due Covid-19, Mrna, Lnp-s, Pf, 30 Mcg/0.3 Ml Dose (P fizer) 07/05/2021 Social History Tobacco Use Types Packs/Day Years Used Date Smoking Tobacco: Never Assessed Comments Unknown Sex and Gender Information Value Date Recorded Sex Assigned at Not on file Legal Sex Female 2:08 PM PERIODONTIST Gender Identity Not on file Sexual Orientation [...] 2011 Zoster Immunization (1 of 2) 2011 Influenza Immunization (#1) 2025 12/2 08/2020, 04/18/2020, 04/24/2018, Additional history exists SARS-COV-2 Immunization ( season) 2025 07/05/2021, 08/23/2020, 07/28/2020 Respiratory Syncytial Virus (RSV) Immunization (Adult) (1 - 1-dose 75+ series) 01/05/2036 DTaP/Tdap/Td Immunization Discontinued 01/20/2020 TdaP Immunization Completed 01/20/2020 Hepatitis B Immunization Aged Out No longer eligible based on patient's age to complete this topic Human Papillomavirus (HPV) Immunization (No Doses Required) Completed Meningococcal Immunization (ACWY) Aged Out No longer eligible based on patient's age to complete this topic Rotavirus Immunization Aged Out No lo nger eligible based on patient's age to complete this topic
[2025-06-21 17:42] LABS: EDCOVIDSCREEN Negative (Negative); EDINFLUASCREEN Negative (Negative); EDINFLUBSCREEN Negative (Negative)
== END 2025-06-21 17:43 | disposition home or self-care (01) ==
PROVIDERS: Emergency Provider Nurse Practitioner Family; PCP Family Medicine
DX: J06.9 Acute upper respiratory infection, unspecified (principal); Z20.822 Contact with and (suspected) exposure to COVID-19
CPT/HCPCS: 87426; 87804; 99213; G0463